=== PATIENT | female | born 1940 | race Caucasian/White ===

== ENCOUNTER 2017-03-13 12:10 | Outpatient (CLI) | payer MEDICARE, OTHER ==
[2017-03-13 13:46] LABS: THYROID STIMULATING HORMONE < 0.08 uIU/mL (0.34-5.60)
== END 2017-03-13 12:11 | disposition home or self-care (01) ==
LOC: LAB 12:10
PROVIDERS: ATTEND Family Medicine
DX: E03.9 Hypothyroidism, unspecified (principal)
CPT/HCPCS: 36415; 84439; 84443

== ENCOUNTER 2017-04-20 13:09 | Outpatient (CLI) | payer MEDICARE, OTHER | END 2017-04-20 13:10 | disposition home or self-care (01) | LOC: DI 13:09 | PROVIDERS: ATTEND Family Medicine | DX: R00.2 Palpitations (principal); R42 Dizziness and giddiness | CPT/HCPCS: 93306 ==

== ENCOUNTER 2017-05-29 12:10 | Outpatient (CLI) | payer MEDICARE, OTHER | END 2017-05-29 12:11 | disposition home or self-care (01) | LOC: LAB.R 12:10 | PROVIDERS: ATTEND Family Medicine | DX: R42 Dizziness and giddiness (principal); N39.0 Urinary tract infection, site not specified | CPT/HCPCS: 87086 ==

== ENCOUNTER 2017-07-26 16:08 | Outpatient (CLI) | payer MEDICARE, OTHER ==
[2017-07-26 16:26] LABS: BASOPHILS # (AUTO) 0.2 10^3/uL (0.0-0.1); BASOPHILS % (AUTO) 1.8 %; EOSINOPHILS # (AUTO) 0.3 10^3/uL (0.0-0.7); EOSINOPHILS % (AUTO) 2.8 %; HGB - HEMOGLOBIN 12.7 g/dL (12.0-16.0); LYMPHOCYTES # (AUTO) 3.3 10^3/uL (1.5-3.5); LYMPHOCYTES % (AUTO) 36.3 %; MEAN CORPUSCULAR HEMOGLOBIN 30.1 pg (27.0-31.0); MEAN CORPUSCULAR HGB CONC 33.6 g/dL (32.0-36.0); MEAN CORPUSCULAR VOLUME 89.7 fL (81.0-99.0); MEAN PLATELET VOLUME 7.1 fL (7.9-10.8); MONOCYTES # (AUTO) 0.8 10^3/uL (0.0-1.0); MONOCYTES % (AUTO) 9.2 %; NEUTROPHILS # (AUTO) 4.6 10^3/uL (1.5-6.6); NEUTROPHILS % (AUTO) 49.9 %; RED BLOOD COUNT 4.23 10^6/uL (4.20-5.40); UNCORRECTED WHITE BLOOD COUNT 9.1 x10^3/uL; WHITE BLOOD COUNT 9.1 x10^3/uL (4.8-10.8)
[2017-07-26 17:04] LABS: ALBUMIN/GLOBULIN RATIO 1.3 (1.0-2.2); BILIRUBIN,TOTAL 0.9 mg/dL (0.2-1.0); BUN - BLOOD UREA NITROGEN 22 mg/dL (6-20); CALCIUM 9.9 mg/dL (8.5-10.3); CARBON DIOXIDE - CO2 27 mmol/L (21-32); CHLORIDE 97 mmol/L (101-111); CREATININE 1.4 mg/dL (0.4-1.0); GFR - MDRD 36 (>89); GLUCOSE 90 mg/dL (70-100); POTASSIUM 3.9 mmol/L (3.5-5.0); SODIUM 135 mmol/L (135-145); TOTAL PROTEIN 8.2 g/dL (6.7-8.2)
[2017-07-26] MEDS ORDERED: BARIUM SULFATE 450 ML BOTTLE PO ONE (20:30)
--- NOTE | 2017-07-26 21:28 | CT Preliminary Report ---
Exam: CT ABDOMEN/PELVIS W/O IMPRESSION: 1. No urinary tract stones or obstruction. 2. Few diverticula seen in the sigmoid colon without evidence for acute diverticulitis. 3. No acute findings are seen. Otherwise, as above. RADIA The call report notification system was initiated by Dr. Chanel Alberto at 21:22 hrs on 07/26/17. The above findings were discussed with Dr Marin by Dr. Chanel Alberto at 21:27 hrs on 07/26/17. SITE ID: [id number]
--- NOTE | 2017-07-26 21:31 | CT Report ---
EXAM: CT ABDOMEN AND PELVIS (CT KUB) EXAM DATE: 07/26/2017 08:19 PM. CLINICAL HISTORY: DIARRHEA, ACUTE, ABDOMINAL PAIN LEFT LOWER QUADRANT. COMPARISONS: CT abdomen pelvis 09-07-16. TECHNIQUE: Routine axial helical CT imaging was performed through the abdomen and pelvis without IV c ontrast. Reconstructions: Coronal and sagittal. In accordance with CT protocol optimization, one or more of the following dose reduction techniques w ere utilized for this exam: automated exposure control, adjustment of mA and/or KV based on patient s ize, or use of iterative reconstructive technique. FINDINGS: Lung Bases: No acute findings. Coronary artery calcification. Liver: Normal. Gallbladder: Normal. No bile duct dilatation. Pancreas: Unremarkable. Spleen: Normal. Adrenals: Normal. Kidneys: No renal calculi. No ureteral calculi or hydroureter. Left lower pole complex renal cyst wit h calcifications in the wall. Left lower pole renal cyst measures 4.9 cm, decreased compared to prior . Bowel: No evidence for bowel obstruction. No acute bowel findings are seen. No acute bowel findings a re seen. The appendix is not seen. Few diverticula seen in the sigmoid colon without evidence for acu te diverticulitis. No free fluid or free air. No abscess. Pelvis: Bladder and remaining pelvic structures appear unremarkable. Vascular structures: No acute findings. Lungs: Osseous fusion at L3-L4 of the vertebral bodies with grade 1-2 anterolisthesis, unchanged. Pos terior rods and pedicle screws at L4, L5 and S1. IMPRESSION: 1. No urinary tract stones or obstruction. 2. Few diverticula seen in the sigmoid colon without evidence for acute diverticulitis. 3. No acute findings are seen. Otherwise, as above. RADIA The call report notification system was initiated by Dr. Chanel Alberto at 21:22 hrs on 07/26/17. The above findings were discussed with Dr Marin by Dr. Chanel Alberto at 21:27 hrs on 07/26/17. Referring Provider Line: [phone] SITE ID: [id number]
== END 2017-07-26 16:09 | disposition home or self-care (01) ==
LOC: LAB 16:08
PROVIDERS: ATTEND Family Medicine
DX: K57.30 Diverticulosis of large intestine without perforation or abscess without bleeding (principal)
CPT/HCPCS: 36415; 74176; 80053; 85025

== ENCOUNTER 2018-09-12 10:31 | Outpatient (CLI) | payer MEDICARE, OTHER ==
[2018-09-12 11:04] LABS: BASOPHILS # (AUTO) 0.2 10^3/uL (0.0-0.1); BASOPHILS % (AUTO) 3.6 %; EOSINOPHILS # (AUTO) 0.3 10^3/uL (0.0-0.7); EOSINOPHILS % (AUTO) 5.7 %; HGB - HEMOGLOBIN 12.7 g/dL (12.0-16.0); LYMPHOCYTES % (AUTO) 34.2 %; MEAN CORPUSCULAR HEMOGLOBIN 30.6 pg (27.0-31.0); MEAN CORPUSCULAR HGB CONC 33.6 g/dL (32.0-36.0); MEAN CORPUSCULAR VOLUME 91.1 fL (81.0-99.0); MEAN PLATELET VOLUME 7.6 fL (7.9-10.8); MONOCYTES # (AUTO) 0.5 10^3/uL (0.0-1.0); MONOCYTES % (AUTO) 8.5 %; NEUTROPHILS # (AUTO) 2.7 10^3/uL (1.5-6.6); PLT - PLATELET COUNT 283 10^3/uL (130-450); RED BLOOD COUNT 4.14 10^6/uL (4.20-5.40); RED CELL DISTRIBUTION WIDTH 13.3 % (12.0-15.0); WHITE BLOOD COUNT 5.7 x10^3/uL (4.8-10.8)
[2018-09-12 11:22] LABS: ALBUMIN 4.6 g/dL (3.2-5.5); ALBUMIN/GLOBULIN RATIO 1.4 (1.0-2.2); ALKALINE PHOSPHATASE 65 IU/L (42-121); ALT ALANINE AMINOTRANSFERASE < 10 IU/L (10-60); AST ASPARTATE AMINOTRANSFERASE 33 IU/L (10-42); BILIRUBIN,TOTAL 0.6 mg/dL (0.2-1.0); BUN - BLOOD UREA NITROGEN 22 mg/dL (6-20); CALCIUM 9.6 mg/dL (8.5-10.3); CARBON DIOXIDE - CO2 25 mmol/L (21-32); CHLORIDE 103 mmol/L (101-111); CHOL/HDL RATIO 2.6 (<4.4); CHOLESTEROL 200 mg/dL; CREATININE 1.3 mg/dL (0.4-1.0); GFR - MDRD 40 (>89); GLUCOSE 111 mg/dL (70-100); HDL CHOLESTEROL 78 mg/dL; LDL CHOLESTEROL,CALCULATED 95 mg/dL; LDL/HDL RATIO 1.2 (<4.4); SODIUM 138 mmol/L (135-145); VLDL CHOLESTEROL 27 mg/dL
[2018-09-12 11:51] LABS: THYROID STIMULATING HORMONE 26.89 uIU/mL (0.34-5.60)
[2018-09-12 12:33] LABS: FREE T4 (FREE THYROXINE) 0.67 ng/dL (0.58-1.64)
== END 2018-09-12 10:32 | disposition home or self-care (01) ==
LOC: LAB 10:31
PROVIDERS: ATTEND Family Medicine
DX: R03.0 Elevated blood-pressure reading, without diagnosis of hypertension (principal); F41.8 Other specified anxiety disorders; K21.9 Gastro-esophageal reflux disease without esophagitis; E03.9 Hypothyroidism, unspecified; Z79.899 Other long term (current) drug therapy
CPT/HCPCS: 36415; 80053; 80061; 83721; 84439; 84443; 85025

== ENCOUNTER 2018-12-30 11:19 | Outpatient (CLI) | payer MEDICARE, OTHER ==
[2018-12-30 19:24] LABS: BASOPHILS # (AUTO) 0.2 10^3/uL (0.0-0.1); BASOPHILS % (AUTO) 2.7 %; EOSINOPHILS # (AUTO) 0.4 10^3/uL (0.0-0.7); EOSINOPHILS % (AUTO) 5.6 %; HGB - HEMOGLOBIN 12.4 g/dL (12.0-16.0); LYMPHOCYTES # (AUTO) 2.3 10^3/uL (1.5-3.5); LYMPHOCYTES % (AUTO) 32.9 %; MEAN CORPUSCULAR HEMOGLOBIN 30.5 pg (27.0-31.0); MEAN CORPUSCULAR HGB CONC 32.7 g/dL (32.0-36.0); MEAN CORPUSCULAR VOLUME 93.3 fL (81.0-99.0); MEAN PLATELET VOLUME 8.2 fL (7.9-10.8); MONOCYTES # (AUTO) 0.6 10^3/uL (0.0-1.0); MONOCYTES % (AUTO) 9.3 %; NEUTROPHILS # (AUTO) 3.4 10^3/uL (1.5-6.6); NEUTROPHILS % (AUTO) 49.5 %; PLT - PLATELET COUNT 295 10^3/uL (130-450); RED BLOOD COUNT 4.07 10^6/uL (4.20-5.40); RED CELL DISTRIBUTION WIDTH 13.9 % (12.0-15.0); WHITE BLOOD COUNT 6.9 x10^3/uL (4.8-10.8)
[2018-12-30 19:26] LABS: ALBUMIN 4.5 g/dL (3.2-5.5); ALBUMIN/GLOBULIN RATIO 1.4 (1.0-2.2); ALKALINE PHOSPHATASE 50 IU/L (42-121); ALT ALANINE AMINOTRANSFERASE < 10 IU/L (10-60); AST ASPARTATE AMINOTRANSFERASE 26 IU/L (10-42); BILIRUBIN,TOTAL 0.9 mg/dL (0.2-1.0); BUN - BLOOD UREA NITROGEN 23 mg/dL (6-20); CALCIUM 9.5 mg/dL (8.5-10.3); CARBON DIOXIDE - CO2 28 mmol/L (21-32); CHLORIDE 101 mmol/L (101-111); CREATININE 1.2 mg/dL (0.4-1.0); GFR - MDRD 43 (>89); GLUCOSE 87 mg/dL (70-100); SODIUM 137 mmol/L (135-145); TOTAL PROTEIN 7.7 g/dL (6.7-8.2)
[2018-12-30 20:38] LABS: FREE T4 (FREE THYROXINE) 0.42 ng/dL (0.58-1.64)
== END 2018-12-30 11:20 | disposition home or self-care (01) ==
LOC: LAB.WCP 11:19
PROVIDERS: ATTEND Family Medicine
DX: R03.0 Elevated blood-pressure reading, without diagnosis of hypertension (principal); R53.83 Other fatigue; R41.3 Other amnesia; F32.9 Major depressive disorder, single episode, unspecified; R00.2 Palpitations; E03.9 Hypothyroidism, unspecified; N39.0 Urinary tract infection, site not specified
CPT/HCPCS: 36415; 80053; 84439; 84443; 85025; 87086

== ENCOUNTER 2019-01-13 11:44 | Outpatient (CLI) | payer MEDICARE, OTHER ==
--- NOTE | 2019-01-13 13:25 | XRAY Report ---
Reason: CERVICALGIA Procedure Date: 01/13/2019 Accession Number: [id number] / [id number] Procedure: WCP - Cervical Spine 2 View CPT Code: FULL RESULT: EXAM: CERVICAL SPINE RADIOGRAPHY EXAM DATE: 01/13/2019 12:00 PM. CLINICAL HISTORY: Cervicalgia. COMPARISONS: CERVICAL SPINE 2 VIEW 05/02/2017 2:23 PM. TECHNIQUE: 3 views. FINDINGS: Alignment: 2 mm anterolisthesis of C3 on C4 and 1 mm anterolisthesis of C4 on C5, appearance is similar to 2017. Cervicothoracic scoliosis, incompletely imaged. Bones: The cervical vertebral bodies and posterior elements are well visualized from the skull base through C5-C6. No fractures or bone lesions. Disks: Disk space height loss is most pronounced at C5-C6. Facets: Lateral mass hypertrophy is demonstrated on the AP view. Soft Tissues: Normal. No prevertebral soft tissue swelling. The visualized lung apices are clear. IMPRESSION: Degenerative changes including scoliosis and listhesis as described. RADIA
== END 2019-01-13 11:45 | disposition home or self-care (01) ==
LOC: DI.WCP 11:44
PROVIDERS: ATTEND Family Medicine
DX: M41.83 Other forms of scoliosis, cervicothoracic region (principal)
CPT/HCPCS: 72040

== ENCOUNTER 2019-02-27 13:16 | Outpatient (CLI) | payer MEDICARE, OTHER ==
--- NOTE | 2019-02-27 15:42 | CT Report ---
Reason: CERVICALGIA Procedure Date: 02/27/2019 Accession Number: [id number] / [id number] Procedure: CT - CERVICAL SPINE WO CPT Code: FULL RESULT: EXAM: CT CERVICAL SPINE WITHOUT CONTRAST DATE: 02/27/2019 01:43 PM. HISTORY: Cervicalgia. COMPARISONS: CERVICAL SPINE 2 VIEW 01/13/2019 11:41 AM. TECHNIQUE: Thin-section axial images were acquired of the cervical spine without contrast. Post-processing: Coronal and sagittal reformats. Other: None. In accordance with CT protocol optimization, one or more of the following dose reduction techniques were utilized for this exam: automated exposure control, adjustment of mA and/or KV based on patient size, or use of iterative reconstructive technique. FINDINGS: Alignment: No scoliosis or spondylolisthesis. Bones: No fracture or bone lesion. Interspace Levels/Facets: Osseous spinal canal and neural foramina are preserved at all levels. C1-C2: Unremarkable. C2-C3: Unremarkable. C3-C4: Approximately 1 mm anterolisthesis of C3 on C4. Neural foramina are preserved. C4-C5: Approximately 1 mm anterolisthesis of C4 on C5. Neural foramina are preserved. C5-C6: Complete loss of disk space height with marginal osteophytosis and mild lateral mass hypertrophy with facet arthropathy. C6-C7: Complete loss of disk space height with marginal osteophytosis and mild lateral mass hypertrophy with facet arthropathy. C7-T1: Mild disk space narrowing. Musculature: Normal. No fatty atrophy. Other: The paravertebral and prevertebral soft tissues are unremarkable. The lung apices are clear. IMPRESSION: Degenerative changes as described without evidence of traumatic osseous injury. RADIA
== END 2019-02-27 13:17 | disposition home or self-care (01) ==
LOC: DI 13:16
PROVIDERS: ATTEND Family Medicine
DX: M47.812 Spondylosis without myelopathy or radiculopathy, cervical region (principal); M50.322 Other cervical disc degeneration at C5-C6 level; M43.12 Spondylolisthesis, cervical region
CPT/HCPCS: 72125

== ENCOUNTER 2019-03-24 15:47 | Outpatient (CLI) | payer MEDICARE, OTHER ==
--- NOTE | 2019-03-25 10:19 | XRAY Report ---
Reason: CONSTIPATION Procedure Date: 03/24/2019 Accession Number: [id number] / [id number] Procedure: WCP - Abdomen 1 View X-Ray CPT Code: 32208 FULL RESULT: EXAM: ABDOMEN RADIOGRAPHY EXAM DATE: 03/24/2019 04:04 PM. CLINICAL HISTORY: Constipation. COMPARISON: None. TECHNIQUE: 1 view. FINDINGS: Bowel Gas Pattern: Gas is seen in the loops of small and large bowel, nonobstructive pattern. There is a meaningful stool burden in the colon, at least moderate and predominantly in the ascending colon. Other: Lower lumbar spinal fusion hardware is incompletely evaluated. IMPRESSION: At least moderate stool burden predominantly in the ascending colon. RADIA
== END 2019-03-24 15:48 | disposition home or self-care (01) ==
LOC: DI.WCP 15:47
PROVIDERS: ATTEND Family Medicine
DX: K59.00 Constipation, unspecified (principal)
CPT/HCPCS: 74018

== ENCOUNTER 2019-05-15 15:58 | Emergency (ER) | payer MEDICARE, OTHER ==
[2019-05-15 16:46] LABS: BASOPHILS # (AUTO) 0.2 10^3/uL (0.0-0.1); BASOPHILS % (AUTO) 1.9 %; EOSINOPHILS # (AUTO) 0.2 10^3/uL (0.0-0.7); EOSINOPHILS % (AUTO) 2.6 %; HGB - HEMOGLOBIN 11.9 g/dL (12.0-16.0); LYMPHOCYTES # (AUTO) 2.8 10^3/uL (1.5-3.5); LYMPHOCYTES % (AUTO) 32.3 %; MEAN CORPUSCULAR VOLUME 96.7 fL (81.0-99.0); MEAN PLATELET VOLUME 9.3 fL (7.9-10.8); MONOCYTES % (AUTO) 11.9 %; NEUTROPHILS # (AUTO) 4.3 10^3/uL (1.5-6.6); NEUTROPHILS % (AUTO) 50.9 %; PLT - PLATELET COUNT 303 10^3/uL (130-450); RED BLOOD COUNT 3.97 10^6/uL (4.20-5.40); RED CELL DISTRIBUTION WIDTH 12.8 % (12.0-15.0); WHITE BLOOD COUNT 8.5 x10^3/uL (4.8-10.8)
[2019-05-15 17:30] LABS: ALBUMIN 4.4 g/dL (3.2-5.5); ALBUMIN/GLOBULIN RATIO 1.2 (1.0-2.2); ALKALINE PHOSPHATASE 66 IU/L (42-121); ALT ALANINE AMINOTRANSFERASE < 10 IU/L (10-60); AST ASPARTATE AMINOTRANSFERASE 25 IU/L (10-42); BILIRUBIN,TOTAL 0.7 mg/dL (0.2-1.0); BUN - BLOOD UREA NITROGEN 17 mg/dL (6-20); CALCIUM 9.9 mg/dL (8.5-10.3); CARBON DIOXIDE - CO2 24 mmol/L (21-32); CHLORIDE 105 mmol/L (101-111); CREATININE 1.1 mg/dL (0.4-1.0); GFR - MDRD 48 (>89); GLUCOSE 82 mg/dL (70-100); LIPASE 38 U/L (22-51); SODIUM 143 mmol/L (135-145); TOTAL PROTEIN 8.1 g/dL (6.7-8.2)
--- NOTE | 2019-05-15 18:37 | ED Physician Documentation ---
PD HPI ABD PAIN - Stated complaint Stated Complaint: ABD PX/BOWEL - Chief complaint Chief Complaint: Abd Pain - History obtained from History obtained from: Patient, Family - History of Present Illness Timing - onset: How many days ago (3) Timing - duration: Days (3) Timing - details: Gradual onset Associated symptoms: Nausea, Constipation. No: Fever, Diarrhea Recently seen: Not recently seen - Additional information Additional information: This is a 78-year-old woman who presents from the assisted living home with that she is constipated and having abdominal pain. She tells me she is felt this way for a couple of weeks however it is clear and her daughter tells me that she has dementia and she is not a reliable history Vinicio. She says she only had a small amount of stool yesterday. She has had some vomiting but it turns out that this vomiting was related to a prior issue of this same complaint. She felt good 4 days ago in fact went to the grocery store with her caregiver. She has not taken the MiraLAX suppository or enemas. She said very small amount of urine output. She did eat today. She had a similar episode happened in March that cleared spontaneously. Review of Systems Unable to obtain: Dementia Constitutional: denies: Fever GI: reports: Abdominal Pain, Constipation. denies: Vomiting, Diarrhea : denies: Dysuria, Frequency Skin: denies: Rash PD PAST MEDICAL HISTORY - Past Medical History Endocrine/Autoimmune: None Psych: Depression, Anxiety Musculoskeletal: Osteoarthritis, Rheumatoid arthritis, Osteoporosis, Fatigue, Chronic back pain - Past Surgical History Ortho: Other /[employer]: Hysterectomy - Present Medications Home Medications: Ambulatory Orders Medication Instructions Recorded Confirmed Polyethylene Glycol 3350 [Miralax] 17 gm PO DAILY PRN #10 packet 05/16/19 - Allergies Allergies/Adverse Reactions: Allergies Allergy/AdvReac Type Severity Reaction Status Date / Time Gadolinium-Containing Allergy Rash Verified 05/15/19 16:10 Contrast Medi Penicillins Allergy Hallucinati Verified 05/15/19 16:11 ons PD ED PE NORMAL - Vitals Vital signs reviewed: Yes - General General: Alert and oriented X 3, No acute distress, Well developed/nourished - HEENT HEENT: Atraumatic - Neck Neck: No adenopathy, Thyroid normal - Cardiac Cardiac: RRR, No murmur - Respiratory Respiratory: No respiratory distress, Clear bilaterally - Abdomen Abdomen: Normal bowel sounds, Soft, Other (Tender diffuse abdominal pain) - Rectal Rectal: Other (Rectal vault was completely devoid of stool) - Derm Derm: Normal color, Warm and dry, No rash - Extremities Extremities: No deformity - Neuro Neuro: Other (Patient is alert and oriented x3 no obvious neurological deficits.) - Psych Psych: Other (Patient clearly has some mild dementia and difficulty with her memory.) Results - Vitals Vitals: Vital Signs - 24 hr 05/15/19 05/15/19 05/15/19 16:05 22:00 22:04 Temperature 36.4 C L 36.4 C L Heart Rate 73 59 L Respiratory 20 18 17 Rate Blood Pressure 172/67 H 151/63 H O2 Saturation 98 96 05/15/19 05/15/19 05/15/19 22:30 22:56 23:44 Temperature Heart Rate Respiratory 18 18 17 Rate Blood Pressure O2 Saturation 05/15/19 23:45 Temperature Heart Rate Respiratory 17 Rate Blood Pressure O2 Saturation Oxygen O2 Source Room air - Labs Labs: Laboratory Tests 05/15/19 05/15/19 05/15/19 16:20 16:41 16:41 WBC 8.5 RBC 3.97 L Hgb 11.9 L Hct 38.4 MCV 96.7 MCH 30.0 MCHC 31.0 L RDW 12.8 Plt Count 303 MPV 9.3 Neut # (Auto) 4.3 Lymph # (Auto) 2.8 [place] # (Auto) 1.0 Eos # (Auto) 0.2 Baso # (Auto) 0.2 H Absolute Nucleated RBC 0.00 Nucleated RBC % 0.0 Sodium 143 Potassium 4.5 Chloride 105 Carbon Dioxide 24 Anion Gap 14.0 H BUN 17 Creatinine 1.1 H Estimated GFR (MDRD) 48 L Glucose 82 Calcium 9.9 Total Bilirubin 0.7 AST 25 ALT < 10 L Alkaline Phosphatase 66 Total Protein 8.1 Albumin 4.4 Globulin 3.7 Albumin/Globulin Ratio 1.2 Lipase 38 Urine Color YELLOW Urine Clarity CLEAR Urine pH 6.0 Ur Specific [place] 1.010 Urine Protein NEGATIVE Urine Glucose (UA) NEGATIVE Urine Ketones NEGATIVE Urine Occult Blood NEGATIVE Urine Nitrite NEGATIVE Urine Bilirubin NEGATIVE Urine Urobilinogen 0.2 (NORMAL) Ur Leukocyte Esterase TRACE H Urine RBC None Seen Urine WBC 0-3 Ur Squamous Epith Cells MOD Squamous H Urine Bacteria None Seen Ur Microscopic Review INDICATED Urine Culture Comments NOT INDICATED - Rads (name of study) Acute abd Radiology: See rad report (Paucity of stool and non-specific bowel gas pattern.) ct abd/pelvis Radiology: See rad report (Neg obstruction) PD MEDICAL DECISION MAKING - ED course Complexity details: reviewed results, re-evaluated patient, d/w patient, d/w family ED course: Patient has a normal white blood cell count and CMP as well as lipase. Her urinalysis is negative. Given that she had a nonspecific bowel gas pattern in the right upper quadrant there were some air-fluid levels and she still had continued pain. I elected to go ahead and do a CT abdomen and pelvis that does not show any sign of obstructive process or inflammatory changes. She was given only p.o. contrast because of a questionable reaction to IV contrast in the past. Results will be discussed with the patient and her family. She does not have a significant amount of stool at this time and I think her dementia is contributing to her symptomatology. Departure - Departure Disposition: 01 Home, Self Care Clinical Impression: Abdominal pain Qualifiers: Abdominal location: generalized Qualified Code(s): R10.84 - Generalized abdominal pain Condition: Good Instructions: ED Abdominal Pain Unkn Cause Follow-Up: Audrey Marin MD [Primary Care Provider] - Prescriptions: Polyethylene Glycol 3350 [Miralax] 17 gm PO DAILY PRN #10 packet PRN Reason: Constipation Comments: There is no sign of any bowel obstruction on your CT scan. You may take MiraLAX if you feel that you are constipated. Follow-up if you develop a fever, your vomiting or have increasing abdominal pain.
[2019-05-15 18:42] LABS: BILIRUBIN,URINE NEGATIVE (NEGATIVE); GLUCOSE, URINE (UA) NEGATIVE (NEGATIVE); KETONES,URINE (UA) NEGATIVE (NEGATIVE); LEUKOCYTE ESTERASE, URINE TRACE (NEGATIVE); NITRITE,URINE NEGATIVE (NEGATIVE); OCCULT BLOOD,URINE NEGATIVE (NEGATIVE); PROTEIN,URINE NEGATIVE (NEGATIVE); UROBILINOGEN,URINE 0.2 (NORMAL) E.U./dL (NORMAL)
[2019-05-15 18:43] LABS: CLARITY,URINE CLEAR (CLEAR)
[2019-05-15 18:53] LABS: BACTERIA,URINE None Seen /HPF (None Seen); RBC,URINE None Seen /HPF (0-5); SQUAMOUS EPITHELIAL CELL,UR MOD Squamous (<= Few)
--- NOTE | 2019-05-15 19:41 | XRAY Report ---
Reason: abdominal pain Procedure Date: 05/15/2019 Accession Number: [id number] / [id number] Procedure: XR - Abdomen Acute CPT Code: FULL RESULT: EXAM: ABDOMINAL SERIES AND PA CHEST EXAM DATE: 05/15/2019 07:15 PM. CLINICAL HISTORY: Abdominal pain. COMPARISON: ABDOMEN 1 VIEW 03/24/2019 3:44 PM. TECHNIQUE: 2 views abdomen and 1 view chest. FINDINGS: CHEST: Lungs/Pleura: Scarring or atelectasis in right base. No definite acute infiltrate, consolidation, effusion, or pneumothorax. Mediastinum: Within exam limitations, cardiomediastinal contour is normal. Upper lobe vessels not distended. ABDOMEN: Bowel Gas Pattern: Scattered collections of large and small bowel gas throughout the abdomen with no focal dilation. Small amount of stool. Free Air: None. Other: Postoperative changes of the lower lumbar spine. Vascular calcifications. IMPRESSION: Nonspecific bowel gas pattern with small amount of stool. [facility]
[2019-05-15] MEDS ORDERED: diphenhydrAMINE 25 MG CAPSULE PO PRN (22:10)
[2019-05-15] MEDS ORDERED: IOVERSOL 320 50 ML VIAL ONE (22:37)
--- NOTE | 2019-05-16 00:31 | CT Report ---
Reason: abdominal pain Procedure Date: 05/15/2019 Accession Number: [id number] / [id number] Procedure: CT - Abdomen/Pelvis WO CPT Code: FULL RESULT: EXAM: CT ABDOMEN EXAM DATE: 05/15/2019 11:57 PM. CLINICAL HISTORY: Abdominal pain. COMPARISON: ABDOMEN/PELVIS W/O 07/26/2017 8:18 PM. TECHNIQUE: Routine helical CT imaging was performed through the abdomen. IV contrast: None Enteric contrast: Yes Reconstruction: Coronal and sagittal. In accordance with CT protocol optimization, one or more of the following dose reduction techniques were utilized for this exam: automated exposure control, adjustment of mA and/or KV based on patient size, or use of iterative reconstructive technique. FINDINGS: Lung Bases: Unremarkable. Liver: Normal. No masses. Gallbladder/Bile Ducts: Unremarkable. Spleen: Normal. Pancreas: Normal. Adrenal Glands: Normal. Kidneys: The kidneys and only positioned. There is a tiny calculus in the left kidney which may be vascular. No hydronephrosis. The cyst/cystic mass in the inferior aspect of the left kidney has decreased in size. Previously this measured 49 mm and currently measures 41 mm. There is calcification in the wall. Hounsfield units measures 12.5. Peritoneal Cavity/Bowel: There is no evidence for bowel obstruction. There is no free fluid. No inflammatory changes. Vasculature: Atherosclerotic vascular calcifications noted involving the aortoiliac vessels. Bones: There is been prior instrumentation at the L4-S1 level of the spine and there is degeneration and anterior listhesis of L3 on L4 similar to the prior study. Other: None. IMPRESSION: 1. No evidence for bowel obstruction. 2. Cyst/cystic mass in the inferior aspect of the left kidney has decreased in size compared to the prior exam. 3. No significant renal calculi and no hydronephrosis. 4. Previous instrumentation of the lumbar spine. No change in the anterior listhesis of L3 on L4. RADIA
[2019-05-16 00:58] VITALS: BP 139/81
[2019-05-16] MEDS ORDERED: IOVERSOL 320 50 ML VIAL PO ONE (01:23)
== END 2019-05-16 00:58 | disposition home or self-care (01) ==
LOC: ED 15:58
DX: R10.84 Generalized abdominal pain (principal); F03.90 Unspecified dementia, unspecified severity, without behavioral disturbance, psychotic disturbance, mood disturbance, and anxiety
CPT/HCPCS: 36415; 51798; 74022; 74176; 80053; 81001; 83690; 85025; 99284; A9270; 81003; 87086

== ENCOUNTER 2019-05-26 17:37 | Outpatient (CLI) | payer MEDICARE, OTHER | END 2019-05-26 17:38 | disposition home or self-care (01) | LOC: LAB 17:37 | PROVIDERS: ATTEND Family Medicine | DX: E03.9 Hypothyroidism, unspecified (principal); R60.0 Localized edema | CPT/HCPCS: 36415; 84443; 84484; 85379 ==

== ENCOUNTER 2019-05-26 21:17 | Emergency (ER) | payer MEDICARE, OTHER ==
--- NOTE | 2019-05-26 21:38 | ED Physician Documentation ---
History of Present Illness - Stated complaint Stated Complaint: ABD PX/SIDE PX - Chief complaint Chief Complaint: Back Pain - Additonal information Additional information: This is a 78-year-old female who presents with concern for flank pain, as well as being called for a an abnormal lab value. Patient states that she was seen for this same abdominal pain/flank pain several weeks ago, she had a CT abdomen pelvis done at that time which did not show any obstruction, patient was discharged home with MiraLAX. She has continued to have some abdominal discomfort, but now she has more left flank pain. She denies dysuria. She states that she is having some mild shortness of breath as well, but denies chest pain. She had a lab draw today with her primary physician, she does not know what lab, but she was called because returned abnormal, so she presents with her daughter michelle. On review of her labs it appears the lab was a d- dimer. Patient denies any leg swelling, redness, history of blood clots, or chest pain. 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 - Present Medications Home Medications: Ambulatory Orders Medication Instructions Recorded Confirmed Polyethylene Glycol 3350 [Miralax] 17 gm PO DAILY PRN #10 packet 05/16/19 - Allergies Allergies/Adverse Reactions: Allergies Allergy/AdvReac Type Severity Reaction Status Date / Time Gadolinium-Containing Allergy Rash Verified 05/26/19 21:35 Contrast Medi Penicillins Allergy Hallucinati Verified 05/26/19 21:35 ons - Social History Does the pt smoke?: No Smoking Status: Never smoker PD ED PE NORMAL - Vitals Vital signs reviewed: Yes - General General: Alert and oriented X 3, No acute distress - HEENT HEENT: PERRL - Neck Neck: Supple, no meningeal sign - Cardiac Cardiac: RRR, No murmur - Respiratory Respiratory: Clear bilaterally - Abdomen Abdomen: Normal bowel sounds, Soft, Non tender, Other (Midly distended) - Derm Derm: Warm and dry - Extremities Extremities: No deformity - Neuro Neuro: Alert and oriented X 3 - Psych Psych: Normal mood, Normal affect Results - Vitals Vitals: Vital Signs - 24 hr 05/26/19 05/26/19 21:33 23:26 Temperature 36.4 C L 36.8 C Heart Rate 83 72 Respiratory 18 18 Rate Blood Pressure 155/117 H 144/54 H O2 Saturation 95 98 Oxygen O2 Source Room air - EKG (time done) 22:07 Other comments: Other comments (Rhythm is sinus, rate 71, normal axis, no ST segment elevation or depression, no abnormal T wave inversion, intervals within normal limits.) - Labs Labs: Laboratory Tests 05/26/19 05/26/19 05/26/19 22:40 22:40 22:40 WBC 9.8 RBC 3.78 L Hgb 11.8 L Hct 36.1 L MCV 95.5 MCH 31.2 H MCHC 32.7 RDW 12.9 Plt Count 271 MPV 9.8 Neut # (Auto) 5.5 Lymph # (Auto) 2.9 [place] # (Auto) 1.0 Eos # (Auto) 0.2 Baso # (Auto) 0.1 Absolute Nucleated RBC 0.00 Nucleated RBC % 0.0 Sodium 138 Potassium 3.9 Chloride 102 Carbon Dioxide 25 Anion Gap 11.0 BUN 25 H Creatinine 1.3 H Estimated GFR (MDRD) 40 L Glucose 108 H Calcium 9.3 Total Bilirubin 0.4 AST 25 ALT < 10 L Alkaline Phosphatase 67 Troponin I High Sens 8.5 Total Protein 7.6 Albumin 4.2 Globulin 3.4 Albumin/Globulin Ratio 1.2 Lipase 34 Urine Color Urine Clarity Urine pH Ur Specific [place] Urine Protein Urine Glucose (UA) Urine Ketones Urine Occult Blood Urine Nitrite Urine Bilirubin Urine Urobilinogen Ur Leukocyte Esterase Urine RBC Urine WBC Ur Squamous Epith Cells Urine Bacteria Ur Microscopic Review Urine Culture Comments 05/26/19 23:00 WBC RBC Hgb Hct MCV MCH MCHC RDW Plt Count MPV Neut # (Auto) Lymph # (Auto) [place] # (Auto) Eos # (Auto) Baso # (Auto) Absolute Nucleated RBC Nucleated RBC % Sodium Potassium Chloride Carbon Dioxide Anion Gap BUN Creatinine Estimated GFR (MDRD) Glucose Calcium Total Bilirubin AST ALT Alkaline Phosphatase Troponin I High Sens Total Protein Albumin Globulin Albumin/Globulin Ratio Lipase Urine Color YELLOW Urine Clarity CLEAR Urine pH 7.0 Ur Specific [place] <=1.005 Urine Protein NEGATIVE Urine Glucose (UA) NEGATIVE Urine Ketones NEGATIVE Urine Occult Blood NEGATIVE Urine Nitrite NEGATIVE Urine Bilirubin NEGATIVE Urine Urobilinogen 0.2 (NORMAL) Ur Leukocyte Esterase SMALL H Urine RBC None Seen Urine WBC 0-3 Ur Squamous Epith Cells MOD Squamous H Urine Bacteria Rare Ur Microscopic Review INDICATED Urine Culture Comments NOT INDICATED - Rads (name of study) Chest XR Radiology: Other (Large lung volumes, no acute abnormality) PD MEDICAL DECISION MAKING - ED course Complexity details: considered differential (UTI, nephrolithiasis, pyelonephritis, pulmonary embolism, electrolyte abnormality, gastroenteritis, bowel obstruction) ED course: On exam patient is well-appearing, she has some mild bloating of her abdomen, but her abdomen is non-tender. It sounds like she is been suffering from some constipation recently, And in fact just saw her primary care provider for this today. Her abdominal pain is not significant change from her recent visit when she had a CT scan which was unremarkable, I do not feel that she needs imaging today. Abdominal labs are unremarkable, UA negative for infection. As a secondary complaint she states that she sometimes feels some mild dyspnea, it sounds like she had a d-dimer ordered with her primary care provider today in clinic, this returned mildly elevated, but when age adjusted it is actually negative, and she does not have symptoms of pulmonary embolism, in particular no chest pain, no hemoptysis, no leg swelling, no history of blood clots, her pulse is normal and her oxygen saturation is also normal. EKG and troponin show no signs of acute ischemia. I discussed the results and recommend that she follow-up closely with her primary care provider. On reevaluation her vital signs remained unremarkable and patient is very well-appearing with a benign abdomen. She agrees and was discharged with her daughter. Departure - Departure Disposition: 01 Home, Self Care Clinical Impression: Flank pain Condition: Good Instructions: ED Abdominal Pain Unkn Cause Follow-Up: Audrey Marin MD [Primary Care Provider] - Comments: You were seen today for flank discomfort, shortness of breath, and an elevated D-dimer lab. You D-dimer is only slightly elevated, and in fact is in a range that is not concerning for your age. I do not see acute issues with your heart or lungs with our work up today. You do not have a UTI. Please follow closely with your doctor on your symptoms and return to the ED with any worsening.
--- NOTE | 2019-05-26 22:41 | XRAY Report ---
Reason: cough Procedure Date: 05/26/2019 Accession Number: [id number] / [id number] Procedure: XR - Chest 2 View X-Ray CPT Code: 10036 FULL RESULT: EXAM: CHEST RADIOGRAPHY EXAM DATE: 05/26/2019 10:24 PM. CLINICAL HISTORY: Cough. Increased shortness of breath. COMPARISON: CHEST 2 VIEW 05/26/2019 3:50 PM. TECHNIQUE: 2 views. FINDINGS: Lungs/Pleura: Large lung volumes. No alveolar consolidation or pleural effusion seen. No pneumothorax. Mediastinum: Heart and mediastinal contours are unremarkable. Aortic atherosclerosis. Other: None. IMPRESSION: 1. Large lung volumes. No acute abnormality seen. RADIA
[2019-05-26 22:58] LABS: BASOPHILS # (AUTO) 0.1 10^3/uL (0.0-0.1); BASOPHILS % (AUTO) 1.3 %; EOSINOPHILS # (AUTO) 0.2 10^3/uL (0.0-0.7); EOSINOPHILS % (AUTO) 2.2 %; HGB - HEMOGLOBIN 11.8 g/dL (12.0-16.0); LYMPHOCYTES # (AUTO) 2.9 10^3/uL (1.5-3.5); LYMPHOCYTES % (AUTO) 29.8 %; MEAN CORPUSCULAR HEMOGLOBIN 31.2 pg (27.0-31.0); MEAN CORPUSCULAR HGB CONC 32.7 g/dL (32.0-36.0); MEAN CORPUSCULAR VOLUME 95.5 fL (81.0-99.0); MEAN PLATELET VOLUME 9.8 fL (7.9-10.8); MONOCYTES % (AUTO) 10.7 %; NEUTROPHILS # (AUTO) 5.5 10^3/uL (1.5-6.6); NEUTROPHILS % (AUTO) 55.8 %; PLT - PLATELET COUNT 271 10^3/uL (130-450); RED BLOOD COUNT 3.78 10^6/uL (4.20-5.40); RED CELL DISTRIBUTION WIDTH 12.9 % (12.0-15.0); WHITE BLOOD COUNT 9.8 x10^3/uL (4.8-10.8)
[2019-05-26 23:17] LABS: BILIRUBIN,URINE NEGATIVE (NEGATIVE); GLUCOSE, URINE (UA) NEGATIVE (NEGATIVE); KETONES,URINE (UA) NEGATIVE (NEGATIVE); LEUKOCYTE ESTERASE, URINE SMALL (NEGATIVE); NITRITE,URINE NEGATIVE (NEGATIVE); OCCULT BLOOD,URINE NEGATIVE (NEGATIVE); PROTEIN,URINE NEGATIVE (NEGATIVE); UROBILINOGEN,URINE 0.2 (NORMAL) E.U./dL (NORMAL)
[2019-05-26 23:21] LABS: CLARITY,URINE CLEAR (CLEAR)
[2019-05-26 23:27] VITALS: BP 144/54
[2019-05-26 23:33] LABS: BACTERIA,URINE Rare /HPF (None Seen); RBC,URINE None Seen /HPF (0-5); SQUAMOUS EPITHELIAL CELL,UR MOD Squamous (<= Few)
[2019-05-26 23:39] LABS: ALBUMIN 4.2 g/dL (3.2-5.5); ALBUMIN/GLOBULIN RATIO 1.2 (1.0-2.2); ALKALINE PHOSPHATASE 67 IU/L (42-121); ALT ALANINE AMINOTRANSFERASE < 10 IU/L (10-60); AST ASPARTATE AMINOTRANSFERASE 25 IU/L (10-42); BILIRUBIN,TOTAL 0.4 mg/dL (0.2-1.0); BUN - BLOOD UREA NITROGEN 25 mg/dL (6-20); CALCIUM 9.3 mg/dL (8.5-10.3); CARBON DIOXIDE - CO2 25 mmol/L (21-32); CHLORIDE 102 mmol/L (101-111); CREATININE 1.3 mg/dL (0.4-1.0); GFR - MDRD 40 (>89); GLUCOSE 108 mg/dL (70-100); LIPASE 34 U/L (22-51); SODIUM 138 mmol/L (135-145); TOTAL PROTEIN 7.6 g/dL (6.7-8.2)
== END 2019-05-27 00:01 | disposition home or self-care (01) ==
LOC: ED 21:17
DX: R10.9 Unspecified abdominal pain (principal); R06.02 Shortness of breath; E03.9 Hypothyroidism, unspecified; R60.0 Localized edema; R06.00 Dyspnea, unspecified; K59.09 Other constipation
CPT/HCPCS: 36415; 71046; 74018; 80053; 81001; 81003; 83690; 84443; 84484; 85025; 85379; 87086; 93005; 99283; 99284

== ENCOUNTER → 2019-05-26 | Outpatient (CLI) | payer MEDICARE, OTHER ==
--- NOTE | 2019-05-27 17:24 | XRAY Report ---
Reason: DYSPNEA Procedure Date: 05/26/2019 Accession Number: [id number] / [id number] Procedure: WCP - Chest 2 View X-Ray CPT Code: 70670 FULL RESULT: EXAM: CHEST RADIOGRAPHY EXAM DATE: 05/26/2019 04:06 PM. CLINICAL HISTORY: Shortness of breath. COMPARISON: 10/25/2015 2:36 PM. TECHNIQUE: 2 views. FINDINGS: Lungs/Pleura: No focal opacities evident. No pleural effusion. No pneumothorax. Normal volumes. Mediastinum: Heart and mediastinal contours are unremarkable. Other: A triphasic thoracolumbar scoliosis is again present. IMPRESSION: No acute disease or interval change. RADIA
--- NOTE | 2019-05-28 09:27 | XRAY Report ---
Reason: CONSTIPATION Procedure Date: 05/26/2019 Accession Number: [id number] / [id number] Procedure: WCP - Abdomen 1 View X-Ray CPT Code: 90304 FULL RESULT: EXAM: ABDOMEN RADIOGRAPHY EXAM DATE: 05/26/2019 04:06 PM. CLINICAL HISTORY: Constipation. COMPARISON: ABDOMEN ACUTE 05/15/2019 7:01 PM ABDOMEN/PELVIS W/O 05/15/2019 11:49 PM. TECHNIQUE: 1 view. FINDINGS: Bowel Gas Pattern: Mild to moderate gaseous distention of small bowel and colon. Small volume of stool in the colon. No portal venous gas or pneumatosis. Other: Lung bases are clear. Levoscoliosis of lower thoracic and lumbar spine. Changes are again seen from lumbosacral fusion. IMPRESSION: 1. Mild to moderate gaseous distention of small bowel and colon. No findings to suggest obstruction. RADIA
== END ==
LOC: EDSTATUS 13:15 → DI.WCP 15:50
PROVIDERS: ATTEND Family Medicine
DX: R06.00 Dyspnea, unspecified (principal); K59.09 Other constipation
CPT/HCPCS: 71046; 74018

== ENCOUNTER 2019-06-11 09:41 | Outpatient (CLI) | payer MEDICARE, OTHER ==
--- NOTE | 2019-06-11 12:23 | Ultrasound Report ---
Reason: RENAL CYST, LEFT Procedure Date: 06/11/2019 Accession Number: [id number] / [id number] Procedure: US - Retroperitoneal CPT Code: FULL RESULT: EXAM: RENAL ULTRASOUND EXAM DATE: 06/11/2019 11:07 AM. CLINICAL HISTORY: RENAL CYST, LEFT. COMPARISON: ABDOMEN/PELVIS W/O 05/15/2019 11:49 PM ABDOMEN/PELVIS W/O 07/26/2017 8:18 PM ABDOMEN/PELVIS W/O 09/07/2016 2:05 PM RETROPERITONEAL ULTRASOUND, REPORT ONLY, 08/22/2006. TECHNIQUE: Real-time scanning was performed with static images obtained. FINDINGS: Right Kidney: 10 x 4.2 x 4 cm. Normal echotexture with no stones, contour-deforming masses, or hydronephrosis. Left Kidney: 10.1 x 4.7 x 5.1 cm. Normal echotexture with no stones, contour-deforming solid masses, or hydronephrosis. Lower pole cyst 4.6 x 3.2 x 3.8 cm, previously 5.9 x 4.6 x 5 cm on ultrasound of 08/22/2006. Bladder: Bilateral jets seen. The prevoid bladder volume was 165 cc. The postvoid bladder volume was 50 cc. Other: None. IMPRESSION: Left renal cyst has decreased in size compared to 2006, currently 4.6 x 3.2 x 3.8 cm. Negative right kidney. Modest postvoid residual volume. RADIA
== END 2019-06-11 09:42 | disposition home or self-care (01) ==
LOC: DI 09:41
PROVIDERS: ATTEND Family Medicine
DX: N28.1 Cyst of kidney, acquired (principal)
CPT/HCPCS: 76770

== ENCOUNTER 2019-06-11 09:43 | Outpatient (CLI) | payer MEDICARE, OTHER | END 2019-06-11 09:44 | disposition home or self-care (01) | LOC: DI 09:43 | PROVIDERS: ATTEND Family Medicine | DX: R06.00 Dyspnea, unspecified (principal); N28.1 Cyst of kidney, acquired | CPT/HCPCS: 76770; 93306 ==

== ENCOUNTER 2019-09-02 15:27 | Outpatient (CLI) | payer MEDICARE, OTHER ==
[2019-09-02 16:27] LABS: THYROID STIMULATING HORMONE 0.22 uIU/mL (0.34-5.60)
[2019-09-02 16:29] LABS: FREE T4 (FREE THYROXINE) 1.11 ng/dL (0.58-1.64)
== END 2019-09-02 15:28 | disposition home or self-care (01) ==
LOC: LAB 15:27
PROVIDERS: ATTEND Family Medicine
DX: E03.9 Hypothyroidism, unspecified (principal); R19.4 Change in bowel habit
CPT/HCPCS: 36415; 84439; 84443; 84481

== ENCOUNTER 2019-10-05 14:44 | Outpatient (CLI) | payer MEDICARE, OTHER | END 2019-10-05 14:45 | disposition home or self-care (01) | LOC: LAB 14:44 | PROVIDERS: ATTEND Family Medicine | DX: E03.9 Hypothyroidism, unspecified (principal) | CPT/HCPCS: 36415; 84443 ==

== ENCOUNTER 2019-11-04 09:30 | Outpatient (CLI) | payer MEDICARE, OTHER ==
--- NOTE | 2019-11-04 11:32 | CONSULTATION NOTE ---
Palliative Care Consultation - Referral Referring Provider: Dr. Audrey Marin Time of Visit: 0427-1306 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 She moved to [facility] to be closer to her daughter approximately 15 years ago from [place]. She presently lives in [facility] in [facility]. She feels like she "forgets every damn thing." Approximately 1 year ago her daughter began overseeing her accounts and bills. She has not driven a car in approximately 1.5 years. She started having a helper from [facility] come for 5 to 6 hours once a week beginning in March 2019. Her daughter also routinely comes to the apartment during the week and also calls her routinely. They have a reminder set up on her telephone to take her pills, but if the patient is preoccupied she will ignore the reminder and forget to take her pills. She also has weekly pill box that is filled at the beginning of the week by her daughter. When she takes her pills she will leave the flap on the pill box up but she often forgets what day of the week it is. In the summer 2018 she experienced increased fatigue and it was found to be attributed to her inconsistent administration of her levothyroxine and elevated thyroid level. After dose adjustments were made to her levothyroxine she reports that her energy returned to baseline. She has been having difficulty with her bowel movements since the summer 2018. She reports that she has had issues with her bowels her entire life and tends to be more on the constipated side. Her diet mainly consists of salads, candy, and Lays potato chips. She is consuming more water where she previously would drink sodas and continues her daily coffee. She denies any nausea, vomiting, and abdominal distention. Medical/Surgical History - Past Medical History Cardiovascular: reports: High cholesterol Neuro: Peripheral neuropathy, Other (Cognitive Impairment) Endocrine/Autoimmune: reports: HyPOthyroidism GI: reports: GERD MANAGER SUPPORT SERVICES: reports: Miscarriage(s) : reports: None HEENT: reports: Other (Allergies) Psych: reports: Depression, Anxiety Musculoskeletal: reports: Osteoarthritis, Rheumatoid arthritis, Osteoporosis, Chronic back pain (history of back surgery in 1991 with titanium rods and screws) Other Past Medical History: Fibromyalgia - Past Surgical History General: reports: Appendectomy, Colonoscopy (with polyps), Other (Tonsillectomy and adenoidectomy) Ortho: reports: Other (Spinal stenosis back surgey 1991 with titanium rods and screws) /MANAGER SUPPORT SERVICES: reports: Hysterectomy HEENT: reports: Cataracts (s/p extraction) - Substance History Use: Uses substance without health or social issues: Other (Former cigarette smoker and she began at age 12 until she moved in with her daughter 15 years ago, at appx age 63. Appx 3 pdd history.) Social History - Living Situation Living arrangement: At home (Senior Apartment) Living Situation: Alone Support System: Patient moved to [facility] from [place] approximately 15 years ago. She initially moved in with her daughter, Jossy. There has been discussion in the past about the patient moving back in with her daughter but due to multilevels within the home and the patient finds it is too busy with her grandchildren she would prefer to stay in her own apartment. After her initial move from [place] she experienced a "emotional break." After medication adjustment was made, her daughter reports that her mood returned to baseline. She has a cat named baby girl who she looks after. Since March 2019 she has a helper from [facility] who comes once a week to clean and vacuum. There are requests that bath have asked her mother to remind the helper to perform when present in the apartment however, the patient will forget. One example would be to apply lotion to general areas of the patient is unable to reach. She also has a life alert. However, it is tied to the phone and the patient is becoming more increasingly forgetful about ensuring that her phone is off after use. She only had 1 daughter, Jossy. She also has 6 grandchildren. She was the eldest of 4 children and was the caregiver of her other 3 siblings. She has never been social light. 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 [facility] She and her daughter have lapsed on obtaining some [place] from the [place] it is quite a distance to travel to [place] routinely. Family History - Family History Family History: Mother: , Father: Family History Comment/Other: Her mother in her 80s and was diagnosed with Alzheimer's. Her father also was diagnosed with dementia and had bilateral [id number] amputations. She has 1 sister who is still living, in [place]. She also has 1 brother who is . Medications/Allergies - Medications Home Medications: Ambulatory Orders Medication Instructions Recorded Confirmed polyethylene glycoL 3350 [Miralax] 17 gm PO DAILY PRN #10 packet 05/16/19 11/04/19 Acetaminophen [Tylenol] 650 mg PO Q6HR PRN 11/04/19 11/04/19 Atorvastatin Calcium 1 tab PO DAILY 11/04/19 11/04/19 Docusate Sodium 100 mg PO BID PRN 11/04/19 11/04/19 Famotidine 20 mg PO BID 11/04/19 11/04/19 Fluoxetine HCl 20 mg PO DAILY 11/04/19 11/04/19 Gabapentin 600 mg PO BID 11/04/19 11/04/19 Levothyroxine Sodium 50 mcg PO DAILY 11/04/19 11/04/19 Lidocaine HCl/Menthol [Icy Hot 1 applic TP BID PRN 11/04/19 11/04/19 4%-1% Cream] Loratadine [Claritin] 1 tab PO DAILY PRN 11/04/19 11/04/19 Magnesium Oxide [Magnesium] 500 mg PO DAILY 11/04/19 11/04/19 Melatonin 5 mg PO DAILY PM 11/04/19 11/04/19 Meloxicam [Mobic] 7.5 mg PO DAILY 11/04/19 11/04/19 Vitamin B Complex [Balanced B-50] 1 tab PO DAILY 11/04/19 11/04/19 Vitamind3 1 tab PO DAILY 11/04/19 - Allergies Allergies/Adverse Reactions: Allergies Allergy/AdvReac Type Severity Reaction Status Date / Time Gadolinium-Containing Allergy Rash Verified 05/26/19 21:35 Contrast Medi Penicillins Allergy Hallucinati Verified 05/26/19 21:35 ons Review of Systems - Constitutional Constitutional: reports: Fatigue, Poor appetite (reports sometimes she does not feel hungry) - Eyes Eyes: reports: Corrective lenses - Ears, Nose & Throat Ears, Nose & Throat: reports: Hearing loss, Hearing aids (has hearing aids but does not wear them), Dentures - Cardiovascular Cardiovascular: denies: Palpitations, Chest pain, Edema - Respiratory Respiratory: denies: Cough, Wheezing, SOB at rest - Gastrointestinal Gastrointestinal: reports: Constipation (at times will not have a bowel movement for 1 week.). denies: Abdominal pain, Abdominal distention, Rectal bleeding, Nausea, Vomiting, Early satiety - Genitourinary Genitourinary: reports: Incontinence (intermittent). denies: Dysuria - Musculoskeletal Musculoskeletal: reports: Back pain, Assistive devices (uses a cane when she recalls and also has a rollator.), Other (She fell appx 4 months ago in her closet when changing liter box.) - Integumentary Integumentary: reports: Dryness - Neurological Neurological: reports: Headache, Memory problems. denies: Dizziness - Psychiatric Psychiatric: reports: Depression - Endocrine Endocrine: reports: Hypothyroidism - All Other Systems All Other Systems: reports: Reviewed and negative Physical Exam - Vital Signs Temperature: 36.3 C Pulse Rate: 63 Respiratory Rate: 18 O2 Saturation: 98 (on RA) Blood Pressure: 135/68 (right wrist cuff) - Physical Exam General Appearance: positive: No acute distress, Alert Eyes Bilateral: positive: Normal inspection, Conjunctivae nml, Other (+corrective lenses) ENT: positive: Other (+MMM; +upper dentures; +conversational hearing without hearing aids) Neck: positive: Nml inspection, Thyroid nml, Trachea midline, Other (no LAD) Cardiovascular: positive: Regular rate & rhythm, No murmur, No gallop. negative: Decreased pulse(s) Respiratory: positive: No respiratory distress, Breath sounds nml. negative: Wheezes Abdomen: positive: Non-tender, Soft, Nml bowel sounds, Other (+round). 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 She also has to word finding difficulty at times during a conversation.), Mood/affect nml Palliative Care - POLST Patient has POLST: No Pain: Pain unchanged, Location (chronic back pain. Improved with meloxicam and icy hot application.) Tiredness/Fatigue: Moderate (4-6) (She will take naps during the day. If she wakes up from a nap and it is dark out then she will think it is the next day per daughter's report.) Nausea: None Anorexia: None Dyspnea: None Depression: Mild (1-3) Anxiety: None Feelings of wellbeing/Perceived Quality of Life: Fair Sleep: Variable sleep pattern (takes melatonin) Constipation: Yes Performance Status: Patient presently resides in senior housing in [place]. She lives alone. Her daughter checks on her daily and stops by several times a week. She has a [employer] helper who comes for 5 to 6 hours once a week. She continues to need assistance with medication reminders due to cognitive impairment. There is also some difficulty with meal administration as she is not always hungry and often opts for Lays potato chips, salads, or candy. They do serve food within the senior apartments, however, she typically does not attend because she "does not like the food here." She also reports that she will not get dressed every day as she is not going anywhere. She does ambulate typically in the apartment with her cane, if she recalls to use it. Due to furniture arrangements it is difficult for her to use her Rollator in the apartment. She has not fallen in the last 4 months. - Palliative Care Discussion: The patient is presently content in her independent senior housing apartment with her cat. She expressed today that she wished that she saw her daughter more throughout the week forgetting that bath, visits routinely. When she stopped driving approximately 1.5 years ago that was a difficult time for her as it meant giving up her independence. She and her daughter looked in to higher level of care approximately 2 years ago but did not like the options. The patient herself recalls her mother's decline with Alzheimer's disease and at the end she had to be placed into a [place] [facility] [place] and this resonates with the patient. At the end her mother resorted to her [place] language and did not recall most of her family members. The patient herself does recognize that there is only so much that can be done for an individual with dementia and that was something that needed to be done. However, for herself she wishes to stay within her apartment in [place]. She and her daughter attended a with dignity class at the local library but she never completed all the paperwork. She filled out paperwork with "[employer]" that designated her daughter, Jossy as her DPOA in 2004. She is set up with [employer] for cremation as well as has a plot in [facility] to be beside her mother and brother in [place]. Results - Lab Results Lab results reviewed: Yes Lab and Imaging Results: 10/05/2019: TSH 6.18 Impression and Recommendations - Palliative Care Impression: This is a garret 78-year-old who has a history of cognitive impairment that is most likely due to Alzheimer's dementia, however no formal diagnosis has been made. Given her family history of Alzheimer's dementia in both her parents and lack of cardiovascular disease this would be the most likely diagnosis. Presently she has medication administration burden but otherwise feels quite content. She recognizes her worsening memory. Palliative care will continue to provide support for symptom management, anticipatory guidance, and end of life planning with a focus on goals of care. Recommendations/Counseling Done: 1. Cognitive Impairment. Noted short term and termite treater memory deficits, most likely Alzheimer's Dementia given her family history. Presently with caregiver support from [facility] and her daughter,, Jossy, who lives locally. Discussion made regarding future plans for when she has further cognitive decline and additional assistance is needed and patient and daughter are open to discussion with palliative care social work to assist. Presently, the patient desires to stay in her apartment. Fall precautions. Requires queuing. Discussed with daughter having a communication book in the home for the caregivers to assist with needed tasks such as lotion application or reminding the patient to take her medications. Continue weekly pill box administration with phone reminders. 2. Constipation. Long standing history. Likely multifactorial given diet as well as sedentary lifestyle. Goal is to have a bowel movement every 3 days. She has miralax and colace 100mg in the home to use as needed. As we wish to avoid additional medications due to confusion and compliance recommended to ensure adequate daily hydration and daily consumptions of prunes and additional fiber resources in her diet. Will adjust regimen as needed. Daughter and patient in agreement regarding plan. 3. Chronic Back Pain. History of spinal stenosis with surgery. Continue icy hot application as needed. Continue meloxicam 7.5mg as ordered by PCP. Encouraged to use assistive device during ambulation. 4. GERD. Controlled. Continue famotidine 20mg BID. 5. Depression. Controlled. She has routine visits from her grandchildren and daughter to decrease her isolation. Encouraged her to attend meals within the housing appartment complex. Continue fluoxetine 20mg as ordered. 6. Peripheral neuropathy. Continue gabapentin 600mg BID. 7. Advanced care planning. Introduction to patient regarding goals of care and palliative care establishing rapport with patient and daughter. She has set up to have cementation upon with burial in [place]. However, we need additional plans for management given her cognitive impairment for the future and both the patient and daughter recognize this. Presently, the patient wishes to remain in her home setting. Upon next visit will review and discuss the POLST. A copy of a POLST was left for the patient and the daughter to review. Time Spent: Total time spent 90 minutes with greater than 50% of this spent in counseling and coordination of care with patient and daughter; review of medication; examination of patient; review of palliative care services and philosophy; review of symptom management and anticipatory guidance. Disclaimer: The chart note was formulated using voice recognition technology and unfortunately sound alike errors may occur.
== END 2019-11-04 09:31 | disposition home or self-care (01) ==
LOC: PC 09:30
PROVIDERS: ATTEND Nurse Practitioner Family
DX: Z51.5 Encounter for palliative care (principal); R41.89 Other symptoms and signs involving cognitive functions and awareness; R41.3 Other amnesia; T50.916A Underdosing of multiple unspecified drugs, medicaments and biological substances, initial encounter; Z91.138 Patient's unintentional underdosing of medication regimen for other reason; G89.29 Other chronic pain; K59.00 Constipation, unspecified; R53.83 Other fatigue; K21.9 Gastro-esophageal reflux disease without esophagitis; F32.9 Major depressive disorder, single episode, unspecified; G62.9 Polyneuropathy, unspecified; Z79.899 Other long term (current) drug therapy
CPT/HCPCS: 99345

== ENCOUNTER 2019-11-25 12:11 | Outpatient (CLI) | payer MEDICARE, OTHER ==
--- NOTE | 2019-11-25 15:37 | CONSULTATION NOTE ---
Palliative Care Follow Up - Referral Referring Provider: Dr. Audrey Marin Time of Visit: [id number] Referral setting: Home Referral Reason: Dementia - Information Sources Records reviewed: Previous records reviewed History/Review of Systems obtained from: Patient, Family (daughter/Jossy DING) Exam limitations: Clinical condition (poor historian due to dementia) - History of Present Illness Update Brief HPI Update: This is a 79-year-old woman with a history of memory impairment more specifically, dementia, with difficulties regarding compliance with medication as well as concern for overall self-management within her senior housing apartment. Patient is seen in her home with her daughter/D Jossy MCKEON present. The patient is quite forgetful. There continues to be some difficulty with medication administration. The patient has a reminder set up on her cell phone that prompts her to take her pills, but if she is preoccupied she will ignore the reminder and then forget to take them. She has a weekly pillbox for her medication administration and at times it is unclear if she has been consistent with her medication administration. Her daughter was recommended to contact [facility] in regards to the service medication 1 time but she has not followed through on this matter. The patient does not always bring her cell phone with her into the other room. And then there are times that she leaves her landline on which then does not allow for an adequate connection for access to her life line dependent. She continues to have chronic lower back pain. It is hit or miss if her caregiver who comes once a week for through [facility] care will assist with administration of her IcyHot cream even with cueing. When last evaluation the patient had reported difficulty with her bowel movements leaning more towards the constipated side. It was suggested that she try daily dry prunes which she reports she has been consuming resulting in a daily bowel movement without straining during defecation. Past medical history includes dementia, neuropathy, hypothyroidism, GERD, depression, anxiety, osteoarthritis, rheumatoid arthritis, osteoporosis, chronic back pain with a history of back surgery in 1991 with titanium rods and screws, spinal stenosis. Social History - Living Situation Living arrangement: At home Living Situation: Alone Support System: The patient resides in [facility] apartments in [place]. She has a cat named baby girl who she looks after. She has a caregiver from [facility] who comes once a week to clean, vacuum, and do other chores. Typically when the caregiver is present that is when the patient will take a shower however recently, even with cueing from the caregiver she has declined. Her daughter/D MIKE Fenton is her only child who also lives on [facility]. The patient has 6 grandchildren. This past week the patient has been contemplating having her cat, baby girl, be re-home with her caregiver. She feels that she can "handle it okay" with having baby girl re-homed. She recently celebrated her birthday and [facility]. Medications/Allergies - Medications Home Medications: Ambulatory Orders Medication Instructions Recorded Confirmed polyethylene glycoL 3350 [Miralax] 17 gm PO DAILY PRN #10 packet 05/16/19 11/04/19 Acetaminophen [Tylenol] 650 mg PO Q6HR PRN 11/04/19 11/04/19 Atorvastatin Calcium 1 tab PO DAILY 11/04/19 11/04/19 Docusate Sodium 100 mg PO BID PRN 11/04/19 11/04/19 Famotidine 20 mg PO BID 11/04/19 11/04/19 Fluoxetine HCl 20 mg PO DAILY 11/04/19 11/04/19 Gabapentin 600 mg PO BID 11/04/19 11/04/19 Levothyroxine Sodium 50 mcg PO DAILY 11/04/19 11/04/19 Lidocaine HCl/Menthol [Icy Hot 1 applic TP BID PRN 11/04/19 11/04/19 4%-1% Cream] Loratadine [Claritin] 1 tab PO DAILY PRN 11/04/19 11/04/19 Magnesium Oxide [Magnesium] 500 mg PO DAILY 11/04/19 11/04/19 Melatonin 5 mg PO DAILY PM 11/04/19 11/04/19 Meloxicam [Mobic] 7.5 mg PO DAILY 11/04/19 11/04/19 Vitamin B Complex [Balanced B-50] 1 tab PO DAILY 11/04/19 11/04/19 Vitamind3 1 tab PO DAILY 11/04/19 - Allergies Allergies/Adverse Reactions: Allergies Allergy/AdvReac Type Severity Reaction Status Date / Time Gadolinium-Containing Allergy Rash Verified 05/26/19 21:35 Contrast Medi Penicillins Allergy Hallucinati Verified 05/26/19 21:35 ons Review of Systems - Constitutional Constitutional: reports: Fatigue, Poor appetite (intermittent) - Eyes Eyes: reports: Corrective lenses - Ears, Nose & Throat Ears, Nose & Throat: reports: Hearing loss, Hearing aids (does not wear the), Other (+dentures) - Cardiovascular Cardiovascular: denies: Chest pain - Respiratory Respiratory: denies: Cough, SOB at rest - Gastrointestinal Gastrointestinal: reports: Constipation (improved with daily prunes). denies: Abdominal pain, Abdominal distention, Nausea - Genitourinary Genitourinary: reports: Incontinence (intermittent). denies: Dysuria - Musculoskeletal Musculoskeletal: reports: Back pain (chronic), Assistive devices - Neurological Neurological: reports: Memory problems - Psychiatric Psychiatric: reports: Depression - Endocrine Endocrine: reports: Hypothyroidism - All Other Systems All Other Systems: reports: Reviewed and negative Physical Exam - Vital Signs Temperature: 36.4 C Pulse Rate: 60 O2 Saturation: 98 (at rest on RA) Blood Pressure: 145/75 (right wrist cuff) - Physical Exam General Appearance: positive: No acute distress, Alert Eyes Bilateral: positive: Normal inspection (+corrective lenses) ENT: positive: Other (+upper dentures) Neck: positive: Trachea midline Cardiovascular: positive: Regular rate & rhythm, No murmur, No gallop Respiratory: positive: No respiratory distress, Breath sounds nml Abdomen: positive: Non-tender, Soft, Nml bowel sounds. 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 She is requiring assistance with medication reminders and pillbox set up due to her cognitive impairment secondary to dementia. She is requiring more cueing per the daughter 's report she is able to ambulate in her apartment with her cane when she remembers to use it. Otherwise she does have a Rollator. She is also needing more cueing in regards to personal hygiene. Her last fall was approximately 5 months ago. - Palliative Care Discussion: The patient is presently living in her independent senior housing apartment with her cat, jarad frye. She is content with this situation and does not wish to end up in a penitentiary like her mother. Her daughter recognizes the continued cognitive decline that is occurring and is exploring options regarding additional caregiving services as well as assistance with medication administration adherence. Presently the patient receives daily phone reminders in regards to taking her oral medications but this can be inconsistent if the patient ignores the reminder. Presently the daughter/D MIKE is working with the [facility] [place] with a case management coordinator for additional support and is scheduled to meet with the palliative care social media director today for additional information. When exploring with the patient herself regarding changes such as re-homing her cat, she recalled the instance when her last cat, Sara had to be put down and is mixing up the 2 events. She reports that without her cat, jarad girl she may be more lonely, but she does have routine visits from her daughter as well as her grandchildren. She is still exploring the option of keeping her rehome in her cat as without the cat the patient will have additional isolation. Impression and Recommendations - Palliative Care Impression: This is a 79-year-old woman with a history of cognitive impairment more specifically likely Alzheimer's dementia, no previous formal diagnosis had been made. She continues to have a progression in her cognitive decline with continued concerns regarding her medication administration as well as self-care such as personal hygiene. The patient herself does recognize her worsening memory. Palliative care will continue to provide support for anticipatory guidance and symptom management. Recommendations/Counseling Done: 1. Dementia. Patient with clear short-term and long-term memory deficits. She is having progressive cognitive decline requiring additional caregiving needs. Ideally, the patient desires to stay in her current apartment. Fall precautions. Requires cueing. Previously recommended a communication book in the home for the caregiver that comes once a week but this was not follow- through, re-prompted daughter today regarding this suggestion. Continue weekly pillbox administration with phone reminders. To follow-up with home care manager rn at the [facility] [place] for additional resources as well as with the palliative care social media director. 2. Chronic back pain. History of spinal stenosis with surgery. Longstanding. Continue IcyHot application as needed. Difficulty with administration as the patient is unable to reach her back for application as well as difficulty due to her cognitive impairment. Continue meloxicam 7.5 mg as ordered by her PCP. Strongly encourage use of her cane or Rollator during ambulation for fall precautions. 3. Constipation. Improved with introduction of dried prunes daily. May use MiraLAX or Colace as needed for constipation. Encourage adequate daily hydration. 4. Advance care planning. POLST reviewed today with patient and daughter/D POA focusing on goals of care. Patient was quite adamant that she wishes to be a DNA R with a focus on selective treatment, antibiotic use for symptom management, and no medically assisted nutrition by feeding tube. The patient has a living will and D POA paperwork. Daughter/D POA to continue to work with palliative care social media director and home care manager rn at [facility] for additional resources regarding caregiving. Discussed with daughter/DPOA regarding further palliative care services and declined as current concerns are regarding additional caregiving needs and potential facility placement. Provided instructions to daughter as to when to co ntact Palliative Care Services for assistance regarding decline or symptom burden with understanding veberalized. Daughter/DPOA provided contact information and in agreement to f/u with palliative care if additional needs occur. Time Spent: Total time spent 60 minutes with greater than 50% of this spent in counseling and coordination of care with patient and daughter/DPOA, review of POLST and goals of care, examination of patient, review of symptom management and anticipatory guidance. Disclaimer: The chart note was formulated using voice recognition technology and unfortunately sound alike errors may occur.
== END 2019-11-25 12:12 | disposition home or self-care (01) ==
LOC: PC 12:11
PROVIDERS: ATTEND Nurse Practitioner Family
DX: Z51.5 Encounter for palliative care (principal); G89.29 Other chronic pain; K59.00 Constipation, unspecified; F03.90 Unspecified dementia, unspecified severity, without behavioral disturbance, psychotic disturbance, mood disturbance, and anxiety; T50.916A Underdosing of multiple unspecified drugs, medicaments and biological substances, initial encounter; Z91.130 Patient's unintentional underdosing of medication regimen due to age-related debility; Z79.899 Other long term (current) drug therapy; Z66 Do not resuscitate
CPT/HCPCS: 99350

== ENCOUNTER 2019-12-16 18:52 | Emergency (ER) | payer MEDICARE, OTHER ==
[2019-12-16] MEDS ORDERED: ALTEPLASE 100 MG VIAL ONE (19:12)
[2019-12-16 19:16] LABS: BASOPHILS # (AUTO) 0.1 10^3/uL (0.0-0.1); BASOPHILS % (AUTO) 1.3 %; EOSINOPHILS # (AUTO) 0.6 10^3/uL (0.0-0.7); EOSINOPHILS % (AUTO) 5.3 %; HGB - HEMOGLOBIN 13.8 g/dL (12.0-16.0); LYMPHOCYTES % (AUTO) 18.4 %; MEAN CORPUSCULAR HEMOGLOBIN 30.3 pg (27.0-31.0); MEAN CORPUSCULAR HGB CONC 32.1 g/dL (32.0-36.0); MEAN CORPUSCULAR VOLUME 94.5 fL (81.0-99.0); MEAN PLATELET VOLUME 9.4 fL (7.9-10.8); MONOCYTES # (AUTO) 0.8 10^3/uL (0.0-1.0); MONOCYTES % (AUTO) 7.7 %; NEUTROPHILS # (AUTO) 7.2 10^3/uL (1.5-6.6); NEUTROPHILS % (AUTO) 66.9 %; PLT - PLATELET COUNT 304 10^3/uL (130-450); RED BLOOD COUNT 4.55 10^6/uL (4.20-5.40); RED CELL DISTRIBUTION WIDTH 13.2 % (12.0-15.0); WHITE BLOOD COUNT 10.8 x10^3/uL (4.8-10.8)
[2019-12-16] MEDS ORDERED: HEPARIN 25000UNITS/500ML (D5W) 25,000 UNIT/500 ML BAG IV ONE (19:18)
[2019-12-16] MEDS ORDERED: HEPARIN 5,000 UNIT/ML VIAL ONE (19:18)
[2019-12-16] MEDS ORDERED: ASPIRIN CHEW 81 MG TABLET ONE (19:18)
[2019-12-16] MEDS ORDERED: METOPROLOL TARTRATE 50 MG TABLET ONE (19:18)
[2019-12-16] MEDS ORDERED: NITROGLYCERIN SL 0.4 MG TABLET SL ONE (19:19)
[2019-12-16] MEDS ORDERED: MORPHINE 2 MG/ML CARPUJECT ONE (19:29)
[2019-12-16] MEDS ORDERED: ONDANSETRON 4 MG/2 ML VIAL ONE (19:29)
--- NOTE | 2019-12-16 19:29 | ED Physician Documentation ---
PD HPI CHEST PAIN - Stated complaint Stated Complaint: CHEST PAIN - Chief complaint Chief Complaint: Cardiac - History obtained from History obtained from: Patient (patient is an 79 y/o female who presents with her daughter after she felt ill tonight and developed some left arm pain and some left sided chest pain. she denies any hx of mi/pe/dvt/stroke. she takes levothyroxine, metformin and gabapentin. she is c/o chest pain currently. denies any treatment prior to arrival.) Review of Systems Constitutional: reports: Reviewed and negative Eyes: reports: Reviewed and negative Ears: reports: Reviewed and negative Nose: reports: Reviewed and negative Throat: reports: Reviewed and negative Cardiac: reports: Chest pain / pressure Respiratory: reports: Reviewed and negative GI: reports: Reviewed and negative : reports: Reviewed and negative Skin: reports: Reviewed and negative Musculoskeletal: reports: Reviewed and negative Neurologic: reports: Reviewed and negative Psychiatric: reports: Reviewed and negative Endocrine: reports: Reviewed and negative Immunocompromised: reports: Reviewed and negative PD PAST MEDICAL HISTORY - Past Medical History Cardiovascular: High cholesterol Neuro: Peripheral neuropathy, Other (Cognitive Impairment) Endocrine/Autoimmune: HyPOthyroidism GI: GERD 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: Miscarriage(s) : None HEENT: Other (Allergies) Psych: Depression, Anxiety Musculoskeletal: Osteoarthritis, Rheumatoid arthritis, Osteoporosis, Chronic back pain (history of back surgery in 1991 with titanium rods and screws) - Past Surgical History Past Surgical History: Yes General: Appendectomy, Colonoscopy (with polyps), Other (Tonsillectomy and adenoidectomy) Ortho: Other (Spinal stenosis back surgey 1991 with titanium rods and screws) /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: Hysterectomy HEENT: Cataracts (s/p extraction) - Present Medications Home Medications: Ambulatory Orders Medication Instructions Recorded Confirmed polyethylene glycoL 3350 [Miralax] 17 gm PO DAILY PRN #10 packet 05/16/19 11/04/19 Acetaminophen [Tylenol] 650 mg PO Q6HR PRN 11/04/19 11/04/19 Atorvastatin Calcium 1 tab PO DAILY 11/04/19 11/04/19 Docusate Sodium 100 mg PO BID PRN 11/04/19 11/04/19 Famotidine 20 mg PO BID 11/04/19 11/04/19 Fluoxetine HCl 20 mg PO DAILY 11/04/19 11/04/19 Gabapentin 600 mg PO BID 11/04/19 11/04/19 Levothyroxine Sodium 50 mcg PO DAILY 11/04/19 11/04/19 Lidocaine HCl/Menthol [Icy Hot 1 applic TP BID PRN 11/04/19 11/04/19 4%-1% Cream] Loratadine [Claritin] 1 tab PO DAILY PRN 11/04/19 11/04/19 Magnesium Oxide [Magnesium] 500 mg PO DAILY 11/04/19 11/04/19 Melatonin 5 mg PO DAILY PM 11/04/19 11/04/19 Meloxicam [Mobic] 7.5 mg PO DAILY 11/04/19 11/04/19 Vitamin B Complex [Balanced B-50] 1 tab PO DAILY 11/04/19 11/04/19 Vitamind3 1 tab PO DAILY 11/04/19 - Allergies Allergies/Adverse Reactions: Allergies Allergy/AdvReac Type Severity Reaction Status Date / Time Gadolinium-Containing Allergy Rash Verified 12/16/19 18:56 Contrast Medi Penicillins Allergy Hallucinati Verified 12/16/19 18:56 ons - Social History Does the pt smoke?: No Smoking Status: Never smoker - POLST Patient has POLST: Yes PD ED PE NORMAL - Vitals Vital signs reviewed: Yes - General General: Alert and oriented X 3, No acute distress, Well developed/nourished - HEENT HEENT: Atraumatic, PERRL, Moist mucous membranes, Pharynx benign - Neck Neck: Supple, no meningeal sign, No JVD - Cardiac Cardiac: RRR, No murmur, Strong equal pulses - Respiratory Respiratory: No respiratory distress, Clear bilaterally, Other - Abdomen Abdomen: Normal bowel sounds, Soft, Non tender, Non distended, No organomegaly - Derm Derm: Normal color, Warm and dry, No rash - Extremities Extremities: No deformity, No tenderness to palpate, Normal ROM s pain, No edema, No calf tenderness / cord - Neuro Neuro: Alert and oriented X 3, catering manager 2-12 intact, No motor deficit, No sensory deficit, Normal speech - Psych Psych: Normal mood, Normal affect Results - Vitals Vitals: Vital Signs - 24 hr 12/16/19 12/16/19 12/16/19 18:56 19:24 19:35 Temperature 36.6 C Heart Rate 86 81 87 Respiratory 16 16 16 Rate Blood Pressure 158/89 H 141/79 H 141/79 H O2 Saturation 100 96 96 12/16/19 12/16/19 19:40 19:45 Temperature Heart Rate 80 81 Respiratory 16 14 Rate Blood Pressure 111/69 88/56 L O2 Saturation 94 96 Oxygen O2 Source Nasal cannula Oxygen Flow Rate 2 - EKG (time done) 19:02 Rate: Other (ANTEROLATERAL STEMI, STEMI ALERT CALLED. PREVIOUS EKG REVIEWED. RIGHT SIDED EKG ORDERED. ) - Labs Labs: Laboratory Tests 12/16/19 12/16/19 12/16/19 19:09 19:09 19:09 WBC 10.8 RBC 4.55 Hgb 13.8 Hct 43.0 MCV 94.5 MCH 30.3 MCHC 32.1 RDW 13.2 Plt Count 304 MPV 9.4 Neut # (Auto) 7.2 H Lymph # (Auto) 2.0 [place] # (Auto) 0.8 Eos # (Auto) 0.6 Baso # (Auto) 0.1 Absolute Nucleated RBC 0.00 Nucleated RBC % 0.0 Sodium 136 Potassium 3.6 Chloride 100 L Carbon Dioxide 22 Anion Gap 14.0 H BUN 24 H Creatinine 1.3 H Estimated GFR (MDRD) 39 L Glucose 116 H Calcium 9.9 Total Bilirubin 1.2 H AST 41 ALT < 10 L Alkaline Phosphatase 67 Troponin I High Sens 730.0 H* Total Protein 9.1 H Albumin 4.9 Globulin 4.2 Albumin/Globulin Ratio 1.2 Lipase 27 PD MEDICAL DECISION MAKING - ED course Complexity details: other (spoke with dr. magdaleno choe at [facility], STEMI alert called at 19:08. patient transferred to [facility] for cardiac laboratory veterinarian. ) - Consults Consults: Consulted (name) (dr magdaleno choe. ), Discussed case with (dr magdaleno choe, stemi alert, patient transferred for cardiac cath. ) - Critical Care Time(min): 30 Time Includes: Direct patient care, Review records, Reassess patient, Document care, Coordinate care, Medical consult Data interpretation: Labs, Pulse ox, CXR, Prior EKG Procedures included in critical care time: Peripheral IV, Blood draw Procedures excluded from critical care time: EKG Departure - Departure Disposition: 02 Transfer Acute Care Hosp Clinical Impression: STEMI (ST elevation myocardial infarction) Qualifiers: Involved coronary artery: unspecified coronary artery Qualified Code(s): I21.3 - ST elevation (STEMI) myocardial infarction of unspecified site Condition: Critical Discharge Date/Time: 12/16/19 19:50
[2019-12-16 19:30] LABS: ALBUMIN 4.9 g/dL (3.2-5.5); ALBUMIN/GLOBULIN RATIO 1.2 (1.0-2.2); ALKALINE PHOSPHATASE 67 IU/L (42-121); ALT ALANINE AMINOTRANSFERASE < 10 IU/L (10-60); AST ASPARTATE AMINOTRANSFERASE 41 IU/L (10-42); BILIRUBIN,TOTAL 1.2 mg/dL (0.2-1.0); BUN - BLOOD UREA NITROGEN 24 mg/dL (6-20); CALCIUM 9.9 mg/dL (8.5-10.3); CARBON DIOXIDE - CO2 22 mmol/L (21-32); CHLORIDE 100 mmol/L (101-111); CREATININE 1.3 mg/dL (0.4-1.0); GFR - MDRD 39 (>89); GLUCOSE 116 mg/dL (70-100); LIPASE 27 U/L (22-51); SODIUM 136 mmol/L (135-145); TOTAL PROTEIN 9.1 g/dL (6.7-8.2)
--- NOTE | 2019-12-16 19:40 | XRAY Report ---
Reason: Chest pain Procedure Date: 12/16/2019 Accession Number: [id number] / [id number] Procedure: XR - Chest 1 View X-Ray CPT Code: 15268 Final Report FULL RESULT: EXAM: CHEST RADIOGRAPHY EXAM DATE: 12/16/2019 07:28 PM. CLINICAL HISTORY: Chest pain. COMPARISON: CHEST 2 VIEW 05/26/2019 10:17 PM. TECHNIQUE: 1 view. FINDINGS: Lungs/Pleura: No dense consolidation. No large effusion or pneumothorax. No pulmonary edema. Mediastinum: Visible contours are unremarkable. Defibrillator pads obscured much of the heart and mediastinum. Other: None. IMPRESSION: No acute radiographic pulmonary abnormalities. RADIA
[2019-12-16 20:05] VITALS: BP 88/56
[2019-12-16] MEDS ORDERED: ASPIRIN 325 MG TABLET PO STA (20:08)
[2019-12-16] MEDS ORDERED: HEPARIN 5,000 UNIT/ML VIAL IVP STA (20:08)
[2019-12-16] MEDS ORDERED: NITROGLYCERIN SL 0.4 MG TABLET SL PRN (20:08)
[2019-12-16] MEDS ORDERED: HEPARIN 25000UNITS/500ML (D5W) 25,000 UNIT/500 ML BAG IV STA (20:08)
== END 2019-12-16 19:50 | disposition short-term general hospital (02) ==
LOC: ED 18:52
DX: I21.09 ST elevation (STEMI) myocardial infarction involving other coronary artery of anterior wall (principal); I44.4 Left anterior fascicular block
CPT/HCPCS: 36415; 71045; 80053; 83690; 84484; 85025; 93005; 96374; 99285; 99291; A9270; J2997

== ENCOUNTER 2019-12-16 19:44 | Outpatient (CLI) | payer MEDICARE, OTHER | END 2019-12-16 23:59 | disposition short-term general hospital (02) | LOC: EMS 19:44 | PROVIDERS: ATTEND Surgery | DX: R07.89 Other chest pain (principal) | CPT/HCPCS: A0425; A0426 ==